=== PATIENT | male | born 1990 | race Caucasian/White ===

== ENCOUNTER 2022-04-05 13:07 | Emergency (ER) | payer SELFPAY ==
[~2022-04-05] VITALS: Ht 175.2 cm; Wt 86.2 kg
== END 2022-04-05 14:02 | disposition short-term general hospital (02) ==
LOC: ED 13:07
DX: S06.9X1A Unspecified intracranial injury with loss of consciousness of 30 minutes or less, initial encounter (principal); Z88.1 Allergy status to other antibiotic agents; W11.XXXA Fall on and from ladder, initial encounter; Y93.89 Activity, other specified; Y92.89 Other specified places as the place of occurrence of the external cause; Y99.8 Other external cause status